=== PATIENT | male | born 1935 | race Caucasian/White ===

== ENCOUNTER → 2016-06-26 | Outpatient (CLI) | payer MEDICARE ==
[2015-11-01 10:44] VITALS: BP 123/63
[~2016-06-26] MED LIST: ACET325T9 PO; AMLO5TAB2 PO; ARGI1000 PO; ASPI-3 PO; CALC600T4 PO; CIPR500T94 PO; FAMO-63 PO; FLEC50TA PO; METF500T4 PO; METH4TAB2 PO; MOME17SP NS; OMEP20TA63 PO; PROVENTIL HFA6.7 GM IH; SAW500CA PO; SIMV20TA3 PO; vitamin D
[2016-06-26 13:55] LABS: CALCIUM 9.8 mg/dL (8.5-10.1); CREATININE 1.3 mg/dL (0.7-1.3); GFR 53.4; POTASSIUM 4.3 mmol/L (3.5-5.1)
== END | disposition home or self-care (01) ==
LOC: LAB 13:16
PROVIDERS: ATTEND Internal Medicine Cardiovascular Disease
DX: I10 Essential (primary) hypertension (principal); E78.5 Hyperlipidemia, unspecified
CPT/HCPCS: 80048

== ENCOUNTER → 2016-09-09 | Outpatient (CLI) | payer MEDICARE ==
[2015-11-01 10:44] VITALS: BP 123/63
[~2016-09-09] MED LIST changes: -ARGI1000 PO; +[UNRECOGNIZED DRUG - CODE] PO
--- NOTE | 2016-09-09 13:17 | KCIC ---
MRA Brain History: Family history of aneurysm Technique: 3-D [id number] MR angiography was performed of the brain. Axial diffusion and axial FLAIR sequences were also acquired. Comparison: There is no previous similar exam available. Correlation is made with MRI brain exam September 27, 2010 Contrast: None Findings: Determination of any degree of stenosis is based on NASCET criteria. Both vertebral arteries constitute basilar artery. There is visualization of segments of bilateral PICAs, AICAs, and superior cerebellar arteries. No significant posterior communicating arteries are visualized. There is likely very small anterior communicating artery. There is flow within bilateral anterior, middle, and posterior cerebral arteries. Flow is seen in the petrous, cavernous, and supraclinoid internal carotid arteries. No aneurysm or arteriovenous malformation is identified. There is no significant focal intracranial stenosis. Impression: 1. No intracranial aneurysm is identified. Electronically signed by: Scott Moore MD (09/09/2016 1:14 PM)
== END | disposition home or self-care (01) ==
LOC: KCIC MRI 12:04
PROVIDERS: ATTEND Internal Medicine Cardiovascular Disease
DX: Z82.3 Family history of stroke (principal)
CPT/HCPCS: 70544

== ENCOUNTER → 2017-04-16 | Outpatient (CLI) | payer MEDICARE ==
[2017-04-16 17:16] LABS: INFLUENZA A PATIENT NEGATIVE (NEGATIVE); INFLUENZA B PATIENT NEGATIVE (NEGATIVE); OBC FLU VALID
[2017-04-16 18:31] LABS: NEGATIVE OBC STREP NEG; POSITIVE OBC STREP POS
== END | disposition home or self-care (01) ==
LOC: LAB 15:16
DX: J02.9 Acute pharyngitis, unspecified (principal)
CPT/HCPCS: 87070; 87804; 87804-59; 87880

== ENCOUNTER → 2017-04-28 | Outpatient (CLI) | payer MEDICARE | END | disposition home or self-care (01) | LOC: KCIC DEXA 09:54 | DX: M85.88 Other specified disorders of bone density and structure, other site (principal) | CPT/HCPCS: 77080 ==

== ENCOUNTER → 2017-08-01 | Outpatient (CLI) | payer MEDICARE | END | disposition home or self-care (01) | LOC: KCIC MRI 09:49 | DX: H53.40 Unspecified visual field defects (principal); H53.9 Unspecified visual disturbance | CPT/HCPCS: 70544; 70551 ==

== ENCOUNTER 2017-08-11 13:01 | Emergency (ER) | payer MEDICARE ==
[2017-08-11 13:40] LABS: ADD MAN DIFF? NO
[2017-08-11] MEDS: IV NORMAL SALINE 500ML BAG 500 ML IV ×2 (13:42)
[2017-08-11] MEDS: ONDANSETRON PF 4 MG/2 ML VIAL. IV ×2 (13:42)
[2017-08-11 13:44] LABS: BASO # 0.1 x10^3/uL (0.0-0.2); BASO % 1 % (0-3); EOS # 0.1 x10^3/uL (0.0-0.7); EOS % 1 % (0-3); HEMATOCRIT 46.7 % (39.0-53.0); HEMOGLOBIN 16.1 g/dL (13.0-17.5); LYMPH # 1.1 x10^3/uL (1.0-4.8); LYMPH % 10 % (24-48); MEAN CORPUSCULAR HEMOGLOBIN 33 pg (25-35); MEAN CORPUSCULAR HGB CONC 34 g/dL (31-37); MEAN CORPUSCULAR VOLUME 95 fL (79-100); MONO # 0.6 x10^3/uL (0.0-1.1); MONO % 5 % (0-9); NEUT # 9.1 x10^3uL (1.8-7.7); NEUT % 83 % (31-73); PLATELET COUNT 179 x10^3/uL (140-400); RED BLOOD COUNT 4.91 x10^6/uL (4.30-5.70); RED CELL DISTRIBUTION WIDTH 13.5 % (11.5-14.5)
[2017-08-11 13:54] LABS: ANION GAP 3 (6-14); BLOOD UREA NITROGEN 17 mg/dL (8-26); BUN/CREATININE RATIO 13 (6-20); CALCIUM 9.5 mg/dL (8.5-10.1); CARBON DIOXIDE 35 mmol/L (21-32); CHLORIDE 103 mmol/L (98-107); CREATININE 1.3 mg/dL (0.7-1.3); GFR 53.3; GLUCOSE 133 mg/dL (70-99); POTASSIUM 3.8 mmol/L (3.5-5.1); SODIUM 141 mmol/L (136-145)
[2017-08-11 14:00] LABS: ALBUMIN 3.6 g/dL (3.4-5.0); ALBUMIN/GLOBULIN RATIO 1.1 (1.0-1.7); ALK PHOS 88 U/L (46-116); ALT (SGPT) 22 U/L (16-63); AST (SGOT) 19 U/L (15-37); LIPASE 122 U/L (73-393); TOTAL BILIRUBIN 0.7 mg/dL (0.2-1.0); TOTAL PROTEIN 6.9 g/dL (6.4-8.2)
[2017-08-11 14:03] LABS: TROPONINI < 0.017 ng/mL (0.000-0.055)
[2017-08-11 14:31] LABS: BILIRUBIN,URINE NEGATIVE (NEG); CLARITY,URINE CLEAR; COLOR,URINE YELLOW; GLUCOSE,URINE NEGATIVE (NEG); NITRITE,URINE NEGATIVE (NEG); PROTEIN,URINE NEGATIVE (NEG-TRACE); UROBILINOGEN,URINE 0.2 mg/dL (0.2 mg/dL)
[2017-08-11 15:02] LABS: BACTERIA,URINE FEW /HPF (0-FEW); RBC,URINE OCC /HPF (0-2); SQUAMOUS EPITHELIAL CELL,UR MOD /LPF
== END 2017-08-11 15:00 | disposition home or self-care (01) ==
LOC: ER 13:01
DX: R55 Syncope and collapse (principal); R42 Dizziness and giddiness; E78.00 Pure hypercholesterolemia, unspecified; I10 Essential (primary) hypertension; J44.9 Chronic obstructive pulmonary disease, unspecified; I48.91 Unspecified atrial fibrillation; Z88.1 Allergy status to other antibiotic agents; Z90.49 Acquired absence of other specified parts of digestive tract
CPT/HCPCS: 36415; 80053; 81001; 83690; 84484; 85025; 87086; 93005; 96361; 96374; 99285-25; J2405; J7040

== ENCOUNTER → 2017-09-11 | Outpatient (CLI) | payer MEDICARE ==
[2017-09-11] MEDS: GADOBUTROL 10 MMOL/10 ML VIAL IV (10:28)
== END | disposition home or self-care (01) ==
LOC: KCIC MRI 09:13
DX: H53.142 Visual discomfort, left eye (principal); I10 Essential (primary) hypertension; E11.9 Type 2 diabetes mellitus without complications; E78.5 Hyperlipidemia, unspecified; E78.00 Pure hypercholesterolemia, unspecified
CPT/HCPCS: 70549; A9585

== ENCOUNTER → 2017-10-01 | Outpatient (CLI) | payer MEDICARE | END | disposition home or self-care (01) | LOC: KCIC US 15:02 | DX: R93.8 Abnormal findings on diagnostic imaging of other specified body structures (principal); I10 Essential (primary) hypertension; E11.9 Type 2 diabetes mellitus without complications; J44.9 Chronic obstructive pulmonary disease, unspecified; E78.5 Hyperlipidemia, unspecified; E78.00 Pure hypercholesterolemia, unspecified; Z87.891 Personal history of nicotine dependence | CPT/HCPCS: 76536 ==

== ENCOUNTER → 2017-10-17 | Outpatient (CLI) | payer MEDICARE | END | disposition home or self-care (01) | LOC: US 09:58 | DX: E04.1 Nontoxic single thyroid nodule (principal); Z88.1 Allergy status to other antibiotic agents; Z98.49 Cataract extraction status, unspecified eye; E78.00 Pure hypercholesterolemia, unspecified; I48.91 Unspecified atrial fibrillation; I10 Essential (primary) hypertension; J44.9 Chronic obstructive pulmonary disease, unspecified; E11.9 Type 2 diabetes mellitus without complications; K21.9 Gastro-esophageal reflux disease without esophagitis; Z99.81 Dependence on supplemental oxygen; Z98.890 Other specified postprocedural states; Z90.49 Acquired absence of other specified parts of digestive tract; Z93.3 Colostomy status; E66.9 Obesity, unspecified; Z98.52 Vasectomy status; M17.0 Bilateral primary osteoarthritis of knee; Z79.82 Long term (current) use of aspirin; Z79.899 Other long term (current) drug therapy; Z87.891 Personal history of nicotine dependence; H53.142 Visual discomfort, left eye; Z79.84 Long term (current) use of oral hypoglycemic drugs | CPT/HCPCS: 10022; 60300; 76942; 88173; 88305 ==

== ENCOUNTER → 2019-12-08 | Outpatient (CLI) | payer MEDICARE ==
[2018-03-22 15:00] VITALS: BP 110/45
[~2019-12-08] MED LIST changes: +AMLO5TAB10 PO; -AMLO5TAB2 PO; +ASPI81TA50 PO; -CALC600T4 PO; +CALC600T6 PO; +MECL12.573 PO; +METF500T16 PO; -METF500T4 PO; +ONDA4TAB7 PO; +SIMV20TA18 PO; -SIMV20TA3 PO
--- NOTE | 2019-12-08 12:00 | KCIC ---
EXAMINATION: SHOULDER 2+V LEFT CLINICAL HISTORY: Shoulder pain x1 month TECHNIQUE: SHOULDER 2+V LEFT Number of images/views: 4 COMPARISON: None FINDINGS: Glenohumeral joint space narrowing and tiny anterior marginal osteophytes. Marked hypertrophic acromioclavicular degenerative changes. No acute fracture. Acromiohumeral interval maintained. IMPRESSION: Degenerative changes as described. Electronically signed by: Abhijit Bryson DO (12/08/2019 11:57 AM) [id number]
== END | disposition home or self-care (01) ==
LOC: KCIC 09:44
PROVIDERS: ATTEND Internal Medicine Cardiovascular Disease
DX: M19.012 Primary osteoarthritis, left shoulder (principal); M25.712 Osteophyte, left shoulder
CPT/HCPCS: 73030

== ENCOUNTER → 2019-12-30 | Outpatient (CLI) | payer MEDICARE ==
[2018-03-22 15:00] VITALS: BP 110/45
--- NOTE | 2019-12-30 09:36 | KCIC ---
Complete abdominal ultrasound Indication: Liver steatosis TECHNIQUE: Grayscale and color Doppler imaging of the abdomen was performed FINDINGS: Liver is normal size measuring 15.3 cm and shows mild increased echogenicity compatible with fatty infiltration. The gallbladder is surgically absent. The common duct is 3.5 mm in diameter. No intra or extrahepatic biliary dilation is evident. Visualized pancreas is normal. The spleen is enlarged at 12.9 cm. The abdominal aorta and IVC are poorly visualized due to bowel gas. The right kidney measures 9.0 x 4.0 x 5.2 cm and contains a 4.3 cm inferior pole cyst The left kidney measures 12.0 x 4.4 x 6.1 cm and is also unremarkable. IMPRESSION: Study limited by bowel gas artifact showing mild hepatic steatosis and splenomegaly, status post cholecystectomy. Electronically signed by: Shlomo Thomson MD (12/30/2019 9:33 AM) [id number]
== END ==
LOC: KCIC US 08:06
PROVIDERS: ATTEND Internal Medicine Cardiovascular Disease
DX: K76.0 Fatty (change of) liver, not elsewhere classified (principal); Z90.49 Acquired absence of other specified parts of digestive tract
CPT/HCPCS: 76700

== ENCOUNTER 2020-03-14 13:18 | Emergency (ER) | payer MEDICARE ==
[~2020-03-14] VITALS: Ht 180.3 cm; Wt 85.0 kg
[~2020-03-14 13:18] MED LIST changes: +AMLO-186 PO; -AMLO5TAB10 PO; -MECL12.573 PO; +MECL12.574 PO
[2020-03-14] MEDS ORDERED: MECLIZINE HCL 12.5 MG TABLET. PO ONE (13:30)
--- NOTE | 2020-03-14 13:33 | ED.ADGEN ---
Past Medical History Past Medical History: A-Fib, COPD, Diverticulitis, High Cholesterol, Hypertension, Other Additional Past Medical Histor: MD Valente Past Surgical History: Other Additional Past Surgical Histo: colon surgery with ostomy, hernia repair, vasectomy, cataract, muscle bx Smoking Status: Former Smoker Alcohol Use: None Drug Use: None General Adult HPI: HPI: Patient is a 84 year old male brought in by EMS for dizziness and vomiting that started 1 hour prior to arrival. Patient states he has had a similar episode 1 year ago that was released relieved with medications. Patient denies any recent illness or head injury. Denies any vision changes, headaches, tinnitus, changes in hearing, pain in his ears, fevers, neck stiffness, or diarrhea. Review of Systems: Review of Systems: Negative except HPI Current Medications: Current Medications Medications (Trade) Dose Ordered Sig/Roseline Start Time Stop Time Status Last Admin Dose Admin Meclizine HCl (Antivert) 25 mg 1X ONCE 03/14/20 13:30 03/14/20 13:31 DC 03/14/20 13:51 25 MG Allergies: Allergies: Allergies Coded Allergies Type Severity Reaction Last Updated Verified levofloxacin Allergy Severe Anaphylaxis 10/30/15 Yes morphine Allergy Severe 03/20/18 Yes Physical Exam: PE: Constitutional: Well developed, well nourished, mild acute distress, non-toxic appearance. [] HENT: Normocephalic, atraumatic, bilateral external ears normal, oropharynx moist, no oral exudates, nose normal. [] TMs unremarkable Eyes: Pupils 3 equal and reactive, extraocular is intact, fatigable nystagmus to the right Neck: Normal range of motion, no tenderness, supple, no stridor. [] Cardiovascular:Heart rate regular rhythm, no murmur [] Lungs & Thorax: Nonlabored respirations Abdomen: Nondistended Skin: Warm, dry, no erythema, no rash. [] Extremities: No tenderness, no cyanosis, no clubbing, ROM intact, no edema. [] Neurologic: Alert and oriented X 3, normal motor function, normal sensory function, no focal deficits noted. [] Psychologic: Affect normal, judgement normal, mood normal. [] Current Patient Data: Labs: Laboratory Tests Test 03/14/20 13:35 03/14/20 14:00 White Blood Count 10.1 x10^3/uL (4.0-11.0) Red Blood Count 5.03 x10^6/uL (4.30-5.70) Hemoglobin 16.0 g/dL (13.0-17.5) Hematocrit 47.7 % (39.0-53.0) Mean Corpuscular Volume 95 fL (79-100) Mean Corpuscular Hemoglobin 32 pg (25-35) Mean Corpuscular Hemoglobin Concent 34 g/dL (31-37) Red Cell Distribution Width 13.3 % (11.5-14.5) Platelet Count 176 x10^3/uL (140-400) Neutrophils (%) (Auto) 85 % (31-73) H Lymphocytes (%) (Auto) 9 % (24-48) L Monocytes (%) (Auto) 5 % (0-9) Eosinophils (%) (Auto) 1 % (0-3) Basophils (%) (Auto) 1 % (0-3) Neutrophils # (Auto) 8.5 x10^3/uL (1.8-7.7) H Lymphocytes # (Auto) 0.9 x10^3/uL (1.0-4.8) L Monocytes # (Auto) 0.5 x10^3/uL (0.0-1.1) Eosinophils # (Auto) 0.1 x10^3/uL (0.0-0.7) Basophils # (Auto) 0.1 x10^3/uL (0.0-0.2) Sodium Level 143 mmol/L (136-145) Potassium Level 3.7 mmol/L (3.5-5.1) Chloride Level 104 mmol/L (98-107) Carbon Dioxide Level 31 mmol/L (21-32) Anion Gap 8 (6-14) Blood Urea Nitrogen 13 mg/dL (8-26) Creatinine 1.2 mg/dL (0.7-1.3) Estimated GFR (Cockcroft-Gault) 58.0 BUN/Creatinine Ratio 11 (6-20) Glucose Level 137 mg/dL (70-99) H Calcium Level 9.5 mg/dL (8.5-10.1) Magnesium Level 1.9 mg/dL (1.8-2.4) Total Bilirubin 0.6 mg/dL (0.2-1.0) Aspartate Amino Transferase (AST) 18 U/L (15-37) Alanine Aminotransferase (ALT) 16 U/L (16-63) Alkaline Phosphatase 96 U/L (46-116) Troponin I Quantitative < 0.017 ng/mL (0.000-0.055) Total Protein 6.3 g/dL (6.4-8.2) L Albumin 3.6 g/dL (3.4-5.0) Albumin/Globulin Ratio 1.3 (1.0-1.7) Urine Collection Type Unknown Urine Color Yellow Urine Clarity Clear Urine pH 7.0 (<5.0-8.0) Urine Specific Hope 1.010 (1.000-1.030) Urine Protein Negative mg/dL (NEG-TRACE) Urine Glucose (UA) Negative mg/dL (NEG) Urine Ketones (Stick) Negative mg/dL (NEG) Urine Blood Negative (NEG) Urine Nitrite Negative (NEG) Urine Bilirubin Negative (NEG) Urine Urobilinogen Dipstick 1.0 mg/dL (0.2 mg/dL) Urine Leukocyte Esterase Small (NEG) Urine RBC 0 /HPF (0-2) Urine WBC 1-4 /HPF (0-4) Urine Squamous Epithelial Cells Few /LPF Urine Bacteria 0 /HPF (0-FEW) Laboratory Tests 03/14/20 13:35 Laboratory Tests 03/14/20 13:35 Vital Signs: Vital Signs Date Time Temp Pulse Resp B/P (MAP) Pulse Ox O2 Delivery O2 Flow Rate FiO2 03/14/20 14:59 69 100 03/14/20 13:18 97.6 22 175/89 (117) Room Air 97.6 EKG: EKG: Sinus rhythm, but anterior fascicular block, incomplete right bundle, indeterminate axis, no ST elevation or depression, no ectopy [] Heart Score: Risk Factors: Risk Factors: DM, Current or recent (<one month) smoker, HTN, HLP, family history of CAD, obesity. Risk Scores: Score 0 - 3: 2.5% MACE over next 6 weeks - Discharge Home Score 4 - 6: 20.3% MACE over next 6 weeks - Admit for Clinical Observation Score 7 - 10: 72.7% MACE over next 6 weeks - Early Invasive Strategies Radiology/Procedures: Radiology/Procedures: [] Course & Med Decision Making: Course & Med Decision Making Pertinent Labs and Imaging studies reviewed. (See chart for details) Symptoms completely resolved. History, physical exam, lab work suggests peripheral vertigo [] Dragon Disclaimer: Dragon Disclaimer: This electronic medical record was generated, in whole or in part, using a voice recognition dictation system. Departure Departure Impression: Primary Impression: BPPV (benign paroxysmal positional vertigo) Disposition: 01 DC HOME SELF CARE/HOMELESS Condition: IMPROVED Referrals: JOSIE SQUIRES MD (PCP) Patient Instructions: Benign Positional Vertigo Scripts Meclizine Hcl (MECLIZINE HCL) 25 Mg Tablet 1 TAB PO TID for dizziness for 10 Days, #30 TAB Prov: ORIN TIRADO MD 03/14/20 Ondansetron (ONDANSETRON ODT) 4 Mg Tab.rapdis 1 TAB PO PRN Q6-8HRS for nausea for 5 Days, #16 TAB Prov: ORIN TIRADO MD 03/14/20 ORIN TIRADO MD Mar 14, 2020 13:33
[2020-03-14 14:04] LABS: BASO # 0.1 x10^3/uL (0.0-0.2); BASO % 1 % (0-3); EOS # 0.1 x10^3/uL (0.0-0.7); EOS % 1 % (0-3); HEMATOCRIT 47.7 % (39.0-53.0); LYMPH # 0.9 x10^3/uL (1.0-4.8); LYMPH % 9 % (24-48); MEAN CORPUSCULAR HEMOGLOBIN 32 pg (25-35); MEAN CORPUSCULAR HGB CONC 34 g/dL (31-37); MEAN CORPUSCULAR VOLUME 95 fL (79-100); MONO # 0.5 x10^3/uL (0.0-1.1); MONO % 5 % (0-9); NEUT # 8.5 x10^3/uL (1.8-7.7); NEUT % 85 % (31-73); PLATELET COUNT 176 x10^3/uL (140-400); RED BLOOD COUNT 5.03 x10^6/uL (4.30-5.70); RED CELL DISTRIBUTION WIDTH 13.3 % (11.5-14.5); WHITE BLOOD COUNT 10.1 x10^3/uL (4.0-11.0)
--- NOTE | 2020-03-14 14:06 | EKG ---
[facility] [address] [place] [address] Test Date: 2020-03-14 Test Time: 13:55:54 Pat Name: QUIN DAVIS Department: Room: Gender: M Nodulizer: : 1935 Requested By: ORIN TIRADO Order Number: [id number] Reading MD: Measurements Intervals [place] Rate: 66 P: -88 WI: 206 QRS: 258 QRSD: 108 T: 41 QT: 426 QTc: 448 Interpretive Statements SINUS RHYTHM ABNORMAL RIGHT SUPERIOR AXIS DEVIATION S1,S2,S3 PATTERN LEFT ANTERIOR FASCICULAR BLOCK INCOMPLETE RIGHT BUNDLE BRANCH BLOCK CONSIDER RIGHT VENTRICULAR HYPERTROPHY ABNORMAL ECG RI6.02 No previous ECG available for comparison
[2020-03-14 14:13] LABS: BILIRUBIN,URINE NEGATIVE (NEG); CLARITY,URINE CLEAR; COLOR,URINE YELLOW; NITRITE,URINE NEGATIVE (NEG); PROTEIN,URINE NEGATIVE (NEG-TRACE)
[2020-03-14 14:29] LABS: CALCIUM 9.5 mg/dL (8.5-10.1); CREATININE 1.2 mg/dL (0.7-1.3); POTASSIUM 3.7 mmol/L (3.5-5.1)
[2020-03-14 14:35] LABS: ALBUMIN 3.6 g/dL (3.4-5.0); ALBUMIN/GLOBULIN RATIO 1.3 (1.0-1.7); MAGNESIUM 1.9 mg/dL (1.8-2.4); TOTAL BILIRUBIN 0.6 mg/dL (0.2-1.0); TOTAL PROTEIN 6.3 g/dL (6.4-8.2)
[2020-03-14 14:40] LABS: BACTERIA,URINE 0 /HPF (0-FEW); RBC,URINE 0 /HPF (0-2)
[2020-03-14] MEDS ORDERED: MECL-75 PO (15:24)
[2020-03-14] MEDS ORDERED: ONDA4TAB12 PO (15:24)
[2020-03-14 15:29] VITALS: BP 135/71
== END 2020-03-14 15:40 | disposition home or self-care (01) ==
LOC: ER 13:18
DX: H81.10 Benign paroxysmal vertigo, unspecified ear (principal); R11.10 Vomiting, unspecified; J44.9 Chronic obstructive pulmonary disease, unspecified; I48.91 Unspecified atrial fibrillation; E78.00 Pure hypercholesterolemia, unspecified; I10 Essential (primary) hypertension; Z87.891 Personal history of nicotine dependence
CPT/HCPCS: 36415; 80053; 81001; 83735; 84484; 85025; 87086; 93005; 99285; J8597

== ENCOUNTER 2021-01-23 12:36 | Inpatient (IN) | payer MEDICARE ==
[~2021-01-23] VITALS: Ht 182.9 cm; Wt 88.1 kg
[~2021-01-23 12:36] MED LIST changes: -CALC600T6 PO; +CALC600T60 PO; +MECL-75 PO; -MECL12.574 PO; +MECL12.582 PO; +ONDA4TAB12 PO
--- NOTE | 2021-01-23 13:04 | PHYS DOC ---
Past Medical History Past Medical History: A-Fib, COPD, Diverticulitis, High Cholesterol, Hype rtension, Other Additional Past Medical Histor: MD Valente, O2 dependant, vertigo Past Surgical History: Other Additional Past Surgical Histo: colon surgery with ostomy, hernia repair, vasectomy, cataract, muscle bx Smoking Status: Never Smoker Alcohol Use: None Drug Use: None General Adult EDM: Chief Complaint: DIZZY/LIGHT HEADED HPI: HPI: Patient is an 85-year-old male that presents today per [facility] with complaint of dizziness. Patient states today around 10 AM he was driving to [place] with his and had a sudden onset of dizziness. Patient cannot verbalize if the dizziness gets better or worse with his eyes open or closed with movement. Patient states he then drove home with his after putting on his oxygen that he chronically is on, sat down in a chair took his meclizine prince t he has ordered at home for his dizziness, and as of right now states he feels better. EMS reported that stated patient did have some diaphoresis with this dizziness, no change in the mental status was reported. Review of Systems: Review of Systems: Constitutional: Denies fever or chills. [] Eyes: Denies change in visual acuity. [] HENT: Denies nasal congestion or sore throat. [] Respiratory: Denies cough or shortness of breath. [] Cardiovascular: Denies chest pain or edema. [] GI: Denies abdominal pain, nausea, vomiting, bloody stools or diarrhea. [] : Denies dysuria. [] Musculoskeletal: Denies back pain or joint pain. [] Integument: Denies rash. [] Neurologic: Denies headache, does state he has neck pain at this time but feels it is due to the pillow. Endocrine: Denies polyuria or polydipsia. [] Lymphatic: Denies swollen glands. [] Psychiatric: Denies depression or anxiety. [] Heart Score: C/O Chest Pain: N/A Risk Factors: Risk Factors: DM, Current or recent (<one month) smoker, HTN, HLP, family history of CAD, obesity. Risk Scores: Score 0 - 3: 2.5% MACE over next 6 weeks - Discharge Home Score 4 - 6: 20.3% MACE over next 6 weeks - Admit for Clinical Observation Score 7 - 10: 72.7% MACE over next 6 weeks - Early Invasive Strategies Current Medications: Aspirin Flecainide Meclizine Cholesterol medication Allergies: Allergies: Allergies Coded Allergies Type Severity Reaction Last Updated Verified levofloxacin Allergy Severe Anaphylaxis 10/30/15 Yes morphine Allergy Severe 03/20/18 Yes Physical Exam: PE: Constitutional: Well developed, well nourished, no acute distress, non-toxic ap pearance. [] HENT: Normocephalic, atraumatic, bilateral external ears normal, oropharynx moist, no oral exudates, nose normal. [] Eyes: PERRLA, EOMI, conjunctiva normal, no discharge. [] Neck: Pain with range of motion, no tenderness with palpation. Cardiovascular: Sinus rhythm with multiple PVCs on the monitor, heart tones normal, peripheral pulses 1+, no edema Lungs & Thorax: O2 at 2 L via nasal cannula, right lower lobe rhonchi noted, cough noted. Abdomen: Bowel sounds normal, soft, no tenderness, no masses, no pulsatile masses. [] Skin: Warm, dry, no erythema, no rash. [] Back: No tenderness, no CVA tenderness. [] Extremities: No tenderness, no cyanosis, no clubbing, ROM intact, no edema. [] Neurologic: Alert and oriented X 3, no sensory or musculoskeletal issues noted, no ataxia, diversity manager strength equal. Psychologic: Affect normal, judgement normal, mood normal. [] Current Patient Data: Labs: Laboratory Tests Test 01/23/21 13:00 White Blood Count 9.0 x10^3/uL Red Blood Count 4.90 x10^6/uL Hemoglobin 15.7 g/dL Hematocrit 47.1 % Mean Corpuscular Volume 96 fL Mean Corpuscular Hemoglobin 32 pg Mean Corpuscular Hemoglobin Concent 33 g/dL Red Cell Distribution Width 13.5 % Platelet Count 173 x10^3/uL Neutrophils (%) (Auto) 81 % Lymphocytes (%) (Auto) 11 % Monocytes (%) (Auto) 6 % Eosinophils (%) (Auto) 1 % Basophils (%) (Auto) 1 % Neutrophils # (Auto) 7.3 x10^3/uL Lymphocytes # (Auto) 1.0 x10^3/uL Monocytes # (Auto) 0.6 x10^3/uL Eosinophils # (Auto) 0.1 x10^3/uL Basophils # (Auto) 0.1 x10^3/uL Sodium Level 140 mmol/L Potassium Level 4.8 mmol/L Chloride Level 101 mmol/L Carbon Dioxide Level 36 mmol/L Anion Gap 3 Blood Urea Nitrogen 14 mg/dL Creatinine 1.2 mg/dL Estimated GFR (Cockcroft-Gault) 57.8 BUN/Creatinine Ratio 12 Glucose Level 122 mg/dL Calcium Level 9.3 mg/dL Magnesium Level 1.9 mg/dL Total Bilirubin 0.6 mg/dL Aspartate Amino Transf (AST/SGOT) 25 U/L Alanine Aminotransferase (ALT/SGPT) 21 U/L Alkaline Phosphatase 98 U/L Troponin I High Sensitivity 8 ng/L Total Protein 6.9 g/dL Albumin 3.4 g/dL Albumin/Globulin Ratio 1.0 Vital Signs: Vital Signs Date Time Temp Pulse Resp B/P (MAP) Pulse Ox O2 Delivery O2 Flow Rate FiO2 01/23/21 14:38 69 15 175/82 (113) 97 Room Air 01/23/21 12:46 97.5 65 22 144/87 (106) 97 Nasal Cannula 2.0 97.5 Vital Signs Date Time Temp Pulse Resp B/P (MAP) Pulse Ox O2 Delivery O2 Flow Rate FiO2 01/23/21 12:46 97.5 65 22 144/87 (106) 97 Nasal Cannula 2.0 97.5 EKG: EKG: EKG done at [address] Causey at 1248, sinus rhythm with PVCs noted left bundle branch right bundle branch block noted rate of 54 [] Radiology/Procedures: Radiology/Procedures: REASON: dizziness PROCEDURE: CT HEAD WO CONTRAST EXAM: CT head without contrast INDICATION: Dizziness COMPARISON: CT head 03/20/2018 TECHNIQUE: Axial CT imaging through the head without intravenous contrast. Coronal reformats were obtained. One or more of the following individualized dose reduction techniques were utilized for this examination: 1. Automated exposure control 2. Adjustment of the mA and/or kV according to patient size 3. Use of iterative reconstruction technique. FINDINGS: The ventricles and sulci are mildly enlarged. Rueda-white matter differentiation is maintained. There is no intracranial hemorrhage, acute infarct, or mass lesion. Basal cisterns are clear. The skull and scalp are intact. There is mild mucosal thickening in the ethmoid air cells. The remaining paranasal sinuses and mastoid air cells are clear. Globes and orbits are intact. IMPRESSION: No acute intracranial abnormality. Electronically signed by: Katya Ramirez MD (01/23/2021 1:38 PM) [id number] Laboratory Tests Test 01/23/21 13:00 White Blood Count 9.0 x10^3/uL Red Blood Count 4.90 x10^6/uL Hemoglobin 15.7 g/dL Hematocrit 47.1 % Mean Corpuscular Volume 96 fL Mean Corpuscular Hemoglobin 32 pg Mean Corpuscular Hemoglobin Concent 33 g/dL Red Cell Distribution Width 13.5 % Platelet Count 173 x10^3/uL Neutrophils (%) (Auto) 81 % Lymphocytes (%) (Auto) 11 % Monocytes (%) (Auto) 6 % Eosinophils (%) (Auto) 1 % Basophils (%) (Auto) 1 % Neutrophils # (Auto) 7.3 x10^3/uL Lymphocytes # (Auto) 1.0 x10^3/uL Monocytes # (Auto) 0.6 x10^3/uL Eosinophils # (Auto) 0.1 x10^3/uL Basophils # (Auto) 0.1 x10^3/uL Sodium Level 140 mmol/L Potassium Level 4.8 mmol/L Chloride Level 101 mmol/L Carbon Dioxide Level 36 mmol/L Anion Gap 3 Blood Urea Nitrogen 14 mg/dL Creatinine 1.2 mg/dL Estimated GFR (Cockcroft-Gault) 57.8 BUN/Creatinine Ratio 12 Glucose Level 122 mg/dL Calcium Level 9.3 mg/dL Magnesium Level 1.9 mg/dL Total Bilirubin 0.6 mg/dL Aspartate Amino Transf (AST/SGOT) 25 U/L Alanine Aminotransferase (ALT/SGPT) 21 U/L Alkaline Phosphatase 98 U/L Troponin I High Sensitivity 8 ng/L Total Protein 6.9 g/dL Albumin 3.4 g/dL Albumin/Globulin Ratio 1.0 [] Course & Med Decision Making: Course & Med Decision Making 1430 patient states has no dizziness at this time, EKG continues to show sinus rhythm with multiple PVCs couplets and triplets. Blood pressure currently is 175/82. Spoke to on the phone with patient present states they were driving this morning around 10 AM and patient became diaphoretic and clipped open the windows in the car she states he was very dizzy at that time and they drove home. states he took his meclizine for his dizziness and states he feels better but he told her to call 911 so he could come to the hospital. states that he had another episode of this in October 2020 as well and was not evaluated at this time. Spoke with patient and at length on the phone and feel an admission is appropriate for the symptoms. and patient are both agreeable to the plan of care. Will page hospitalist group for admission [address] Montoya patient will be admitted underneath his service. Laylaon Disclaimer: Agus Disclaimer: This electronic medical record was generated, in whole or in part, using a voice recognition dictation system. Departure Departure Impression: Primary Impression: Dizziness Disposition: 09 ADMITTED INPATIENT Admitting Physician: NAHOMI Condition: STABLE Referrals: JOSIE SQUIRES MD (PCP) DOLORES KUMAR APRN Jan 23, 2021 13:04
[2021-01-23 13:16] LABS: BASO # 0.1 x10^3/uL (0.0-0.2); BASO % 1 % (0-3); EOS # 0.1 x10^3/uL (0.0-0.7); EOS % 1 % (0-3); HEMATOCRIT 47.1 % (39.0-53.0); HEMOGLOBIN 15.7 g/dL (13.0-17.5); LYMPH % 11 % (24-48); MEAN CORPUSCULAR HEMOGLOBIN 32 pg (25-35); MEAN CORPUSCULAR HGB CONC 33 g/dL (31-37); MEAN CORPUSCULAR VOLUME 96 fL (79-100); MONO # 0.6 x10^3/uL (0.0-1.1); MONO % 6 % (0-9); NEUT # 7.3 x10^3/uL (1.8-7.7); NEUT % 81 % (31-73); PLATELET COUNT 173 x10^3/uL (140-400); RED CELL DISTRIBUTION WIDTH 13.5 % (11.5-14.5)
[2021-01-23 13:31] LABS: CALCIUM 9.3 mg/dL (8.5-10.1); CREATININE 1.2 mg/dL (0.7-1.3); GFR 57.8; POTASSIUM 4.8 mmol/L (3.5-5.1)
[2021-01-23 13:35] LABS: ALBUMIN 3.4 g/dL (3.4-5.0); MAGNESIUM 1.9 mg/dL (1.8-2.4); TOTAL BILIRUBIN 0.6 mg/dL (0.2-1.0); TOTAL PROTEIN 6.9 g/dL (6.4-8.2)
--- NOTE | 2021-01-23 13:41 | RAD ---
EXAM: CT head without contrast INDICATION: Dizziness COMPARISON: CT head 03/20/2018 TECHNIQUE: Axial CT imaging through the head without intravenous contrast. Coronal reformats were obt ained. One or more of the following individualized dose reduction techniques were utilized for this examinat ion: 1. Automated exposure control 2. Adjustment of the mA and/or kV according to patient size 3. Use of iterative reconstruction technique. FINDINGS: The ventricles and sulci are mildly enlarged. Rueda-white matter differentiation is maintained. There is no intracranial hemorrhage, acute infarct, or mass lesion. Basal cisterns are clear. The skull and scalp are intact. There is mild mucosal thickening in the ethmoid air cells. The remain ing paranasal sinuses and mastoid air cells are clear. Globes and orbits are intact. IMPRESSION: No acute intracranial abnormality. Electronically signed by: Katya Ramirez MD (01/23/2021 1:38 PM) [id number]
--- NOTE | 2021-01-23 14:29 | RAD ---
EXAM: XR CHEST 1V 01/23/2021 1:48 PM CLINICAL INDICATION: Cough and dizziness COMPARISON: chest radiograph 03/20/2018 TECHNIQUE: AP upright view of the chest FINDINGS: There is unchanged elevation of the right hemidiaphragm. The cardiac silhouette is stable. There are chronic appearing interstitial opacities in the lung bases, greater on the left, unchanged . There is possible 7 mm nodule in the medial left apex versus superimposed costosternal degenerative changes. No pneumothorax. No acute osseous abnormality. IMPRESSION: 1. Unchanged moderate elevation of the right hemidiaphragm. 2. Unchanged chronic appearing interstitial opacities in the lung bases. 3. Possible 7 mm nodule in the medial left apex versus superimposed costosternal degenerative changes . CT could be obtained to further evaluate. Electronically signed by: Katya Ramirez MD (01/23/2021 2:26 PM) [id number]
[2021-01-23] MEDS ORDERED: ELECTROLYTE (NON-ICU) PROTOCOL. MC PRN (15:00)
[2021-01-23] MEDS ORDERED: ZOLPIDEM 5 MG TABLET. PO PRN (15:00)
[2021-01-23] MEDS ORDERED: ONDANSETRON PF 4 MG/2 ML VIAL. IVP PRN (15:00)
[2021-01-23] MEDS ORDERED: hydrALAZINE 20 MG/ML VIAL. IVP ONE (15:00)
[2021-01-23] MEDS ORDERED: ACETAMINOPHEN 325 MG TABLET. PO PRN (15:00)
[2021-01-23] MEDS ORDERED: CALCIUM CARBONATE 500 MG TAB.CHEW PO PRN (15:00)
[2021-01-23] MEDS ORDERED: MECLIZINE HCL 12.5 MG TABLET. PO PRN (15:00)
--- NOTE | 2021-01-23 15:19 | PDOC1 ---
History and Physical Date of Service: DOS: DATE: 01/23/21 TIME: 15:12 Chief Complaint: Problems: (1) BPPV (benign paroxysmal positional vertigo) (2) Dizziness Chief Complain: Dizziness History of Present Illness: HPI: Patient is an 85-year-old white male who presented to the emergency room today due to acute onset of dizziness this morning. He reports that at 10 AM today he was driving to [employer] with his and had a sudden onset of dizziness. Patient cannot verbalize if the dizziness gets better or worse with his eyes open or closed with movement. He then drove home with his after putting on his oxygen that he chronically is on, sat down in a chair took his meclizine that he has ordered at home for his dizziness, and had improvement in symptoms. He however still requested his to call EMS to bring him to the hospital. EMS reported that stated patient did have some diaphoresis with this dizziness, no change in the mental status was reported. I evaluated the patient in the emergency room he says he felt at his baseline. Says no more dizziness. Does have a high burden of PVCs on telemetry from what I can tell thus would like to monitor on telemetry overnight. Patient does have a history of muscular dystrophy he is bed and wheelchair bound. Given history of A. fib patient reports he is currently on flecainide unknown dosage. Is not on anticoagulation and he says due to history of a renal bleed. Past Medical/Surgical History: PMH/PSH: A-Fib, COPD, Diverticulitis, High Cholesterol, Hypertension,, vertigo, O2 dependent Allergies: Allergies: Coded Allergies: levofloxacin (Verified Allergy, Severe, Anaphylaxis, 10/30/15) morphine (Verified Allergy, Severe, 03/20/18) hallucinations Family History: Family History: Reviewed with patient and he reports hypertension and CAD throughout his family Social History: Social History: Denies alcohol tobacco or drug use Current Medications: Current Medications Active Scripts Active Meclizine Hcl 25 Mg Tablet 1 Tab PO TID 10 Days Ondansetron Odt (Ondansetron) 4 Mg Tab.rapdis 1 Tab PO PRN Q6-8HRS 5 Days Zofran (Ondansetron Hcl) 4 Mg Tablet 1 Tab PO Q6HRS Meclizine Hcl 12.5 Mg Tablet 25 Mg PO PRN Q6HRS PRN MDD 1 Reported Aspir-Low (Aspirin) 81 Mg Tablet.dr 1 Tab PO DAILY Simvastatin 20 Mg Tablet 20 Mg PO ROS: Review of Systems Review of System Unless noted in HPI 14 point review of systems was negative Physical Exam: Vital Signs: Vital Signs Date Time Temp Pulse Resp B/P (MAP) Pulse Ox O2 Delivery O2 Flow Rate FiO2 01/23/21 14:38 69 15 175/82 (113) 97 Room Air 01/23/21 12:46 97.5 2.0 97.5 Physcial Exam: GEN: No apparent distress. Alert and oriented HEENT: Normal cephalic, atraumatic, external auditory canals are patent EYES: Extraocular muscles are intact, pupil are equally round and reactive to light and accommodation MUSCULOSKELETAL: Well developed , well nourished, good range of motion ENDOCRINE: No thyromegaly was palpated LYMPHATICS: No cervical chain or axillary nodes were noted HEMATOPOIETIC: No bruising NECK: Supple, no JVD, no thyromegaly was noted LUNGS: Clear to auscultation in all lung mcqueen without rhonchi or wheezing HEART: RRR, S1, S2 present. Patient not in A. fib on my exam peripheral pulses intact ABDOMEN: Soft, nontender. Positive bowel sounds, no organomegaly, normal bowel sounds EXTREMITIES: Without clubbing, cyanosis, or edema. Pedal pulses intact. NEUROLOGIC: Normal speech and tone. A&O x 3, moves all extremities, no obvious focal deficits PSYCHIATRIC: Normal affect, normal mood. Stable SKIN: No ulcerations or rashes, good skin turgor, no jaundice VASCULAR: Good capillary refill, neurovascular bundle appears to be intact Labs: Labs: Laboratory Tests Test 01/23/21 13:00 White Blood Count 9.0 x10^3/uL (4.0-11.0) Red Blood Count 4.90 x10^6/uL (4.30-5.70) Hemoglobin 15.7 g/dL (13.0-17.5) Hematocrit 47.1 % (39.0-53.0) Mean Corpuscular Volume 96 fL (79-100) Mean Corpuscular Hemoglobin 32 pg (25-35) Mean Corpuscular Hemoglobin Concent 33 g/dL (31-37) Red Cell Distribution Width 13.5 % (11.5-14.5) Platelet Count 173 x10^3/uL (140-400) Neutrophils (%) (Auto) 81 % (31-73) Lymphocytes (%) (Auto) 11 % (24-48) Monocytes (%) (Auto) 6 % (0-9) Eosinophils (%) (Auto) 1 % (0-3) Basophils (%) (Auto) 1 % (0-3) Neutrophils # (Auto) 7.3 x10^3/uL (1.8-7.7) Lymphocytes # (Auto) 1.0 x10^3/uL (1.0-4.8) Monocytes # (Auto) 0.6 x10^3/uL (0.0-1.1) Eosinophils # (Auto) 0.1 x10^3/uL (0.0-0.7) Basophils # (Auto) 0.1 x10^3/uL (0.0-0.2) Sodium Level 140 mmol/L (136-145) Potassium Level 4.8 mmol/L (3.5-5.1) Chloride Level 101 mmol/L (98-107) Carbon Dioxide Level 36 mmol/L (21-32) Anion Gap 3 (6-14) Blood Urea Nitrogen 14 mg/dL (8-26) Creatinine 1.2 mg/dL (0.7-1.3) Estimated GFR (Cockcroft-Gault) 57.8 BUN/Creatinine Ratio 12 (6-20) Glucose Level 122 mg/dL (70-99) Calcium Level 9.3 mg/dL (8.5-10.1) Magnesium Level 1.9 mg/dL (1.8-2.4) Total Bilirubin 0.6 mg/dL (0.2-1.0) Aspartate Amino Transf (AST/SGOT) 25 U/L (15-37) Alanine Aminotransferase (ALT/SGPT) 21 U/L (16-63) Alkaline Phosphatase 98 U/L (46-116) Troponin I High Sensitivity 8 ng/L (4-75) Total Protein 6.9 g/dL (6.4-8.2) Albumin 3.4 g/dL (3.4-5.0) Albumin/Globulin Ratio 1.0 (1.0-1.7) Laboratory Tests Test 01/23/21 13:00 White Blood Count 9.0 x10^3/uL (4.0-11.0) Red Blood Count 4.90 x10^6/uL (4.30-5.70) Hemoglobin 15.7 g/dL (13.0-17.5) Hematocrit 47.1 % (39.0-53.0) Mean Corpuscular Volume 96 fL (79-100) Mean Corpuscular Hemoglobin 32 pg (25-35) Mean Corpuscular Hemoglobin Concent 33 g/dL (31-37) Red Cell Distribution Width 13.5 % (11.5-14.5) Platelet Count 173 x10^3/uL (140-400) Neutrophils (%) (Auto) 81 % (31-73) Lymphocytes (%) (Auto) 11 % (24-48) Monocytes (%) (Auto) 6 % (0-9) Eosinophils (%) (Auto) 1 % (0-3) Basophils (%) (Auto) 1 % (0-3) Neutrophils # (Auto) 7.3 x10^3/uL (1.8-7.7) Lymphocytes # (Auto) 1.0 x10^3/uL (1.0-4.8) Monocytes # (Auto) 0.6 x10^3/uL (0.0-1.1) Eosinophils # (Auto) 0.1 x10^3/uL (0.0-0.7) Basophils # (Auto) 0.1 x10^3/uL (0.0-0.2) Sodium Level 140 mmol/L (136-145) Potassium Level 4.8 mmol/L (3.5-5.1) Chloride Level 101 mmol/L (98-107) Carbon Dioxide Level 36 mmol/L (21-32) Anion Gap 3 (6-14) Blood Urea Nitrogen 14 mg/dL (8-26) Creatinine 1.2 mg/dL (0.7-1.3) Estimated GFR (Cockcroft-Gault) 57.8 BUN/Creatinine Ratio 12 (6-20) Glucose Level 122 mg/dL (70-99) Calcium Level 9.3 mg/dL (8.5-10.1) Magnesium Level 1.9 mg/dL (1.8-2.4) Total Bilirubin 0.6 mg/dL (0.2-1.0) Aspartate Amino Transf (AST/SGOT) 25 U/L (15-37) Alanine Aminotransferase (ALT/SGPT) 21 U/L (16-63) Alkaline Phosphatase 98 U/L (46-116) Troponin I High Sensitivity 8 ng/L (4-75) Total Protein 6.9 g/dL (6.4-8.2) Albumin 3.4 g/dL (3.4-5.0) Albumin/Globulin Ratio 1.0 (1.0-1.7) Assessment/Plan Assessment/Plan Acute onset dizziness secondary to BPPV versus atrial fibrillation versus dehydration? History of A. fib COPD on home O2 hypertension hyperlipidemia -Patient with 1 day history acute onset dizziness. Has had episodes like this in the past and seems most related to vertigo as dizziness usually improves with meclizine -Patient took meclizine when this episode started and symptoms have improved since according to him -On monitor patient with high burden of PVCs. Given the dizzy episode and history of A. fib on home flecainide will consult cardiology. -Patient says he does follow with a acid tester but has not seen him in several years. He could not exactly remember which ones but just that they were in [facility] -As needed meclizine -Home meds resumed as indicated -Patient previously on home inhalers for COPD but says he was taken off them for reasons unknown -We will try him on a basic Pulmicort and see how he does -DVT prophylaxis -Regular diet -Hold off on PT OT as patient is largely bed and wheelchair-bound but does still drive I spent 16 minutes discussing advance care planning with this patient. Justifications for Admission Other Justification NOEL LEDEZMA MD Jan 23, 2021 15:19
[2021-01-23] MEDS ORDERED: FLEC100T PO (16:57)
[2021-01-23] MEDS ORDERED: [UNRECOGNIZED DRUG - CODE] PO (16:57)
[2021-01-23] MEDS ORDERED: SAW450CA7 PO (16:57)
[2021-01-23] MEDS ORDERED: UBID200C7 PO (16:57)
[2021-01-23] MEDS ORDERED: ATOR10TA60 PO (16:57)
[2021-01-23] MEDS ORDERED: OMEP-346 PO (16:57)
[2021-01-23 19:00] VITALS: BP 118/71
[2021-01-23] MEDS: SENNOSIDES/DOCUSATE 8.6/50MG TABLET. PO SCH (20:19)
[2021-01-23] MEDS: FLECAINIDE ACETATE 50 MG TABLET. PO SCH (20:26)
[2021-01-23] MEDS: ATORVASTATIN CALCIUM 10 MG TABLET. PO SCH (20:26)
[2021-01-23] MEDS: ASPIRIN ENTERIC COATED 81 MG TABLET.DR. PO SCH (20:26)
[2021-01-23] MEDS ORDERED: FLUT9.9S NS (20:28)
[2021-01-23] MEDS: HEPARIN for SUB-Q USE 5,000 UNIT/ML VIAL. SQ SCH (20:29)
[2021-01-23] MEDS ORDERED: SIMVASTATIN 20 MG TABLET PO SCH (21:00)
[2021-01-23] MEDS: FLUTICASONE 50MCG/NASAL SPRAY 16GM BOTTLE. NS SCH (21:30)
[2021-01-23 23:00] VITALS: BP 112/61
[2021-01-24] VITALS (10 sets, daily range): BP systolic 94–138; BP diastolic 32–72
[2021-01-24] MEDS: HEPARIN for SUB-Q USE 5,000 UNIT/ML VIAL. SQ SCH ×3 (05:23→21:41)
[2021-01-24] MEDS: SENNOSIDES/DOCUSATE 8.6/50MG TABLET. PO SCH ×2 (07:48→21:26)
[2021-01-24] MEDS: FLUTICASONE 50MCG/NASAL SPRAY 16GM BOTTLE. NS SCH ×2 (07:48→21:26)
[2021-01-24] MEDS: PANTOPRAZOLE 40 MG TABLET.DR. PO SCH (07:49)
[2021-01-24] MEDS: FLECAINIDE ACETATE 50 MG TABLET. PO SCH ×2 (07:49→21:27)
--- NOTE | 2021-01-24 08:30 | PDOC ---
[employer] PROGRESS NOTE Date of Service DOS: DATE: 01/24/21 TIME: 08:29 Chief Complaint Chief Complaint Vertigo Weakness Dizziness Noncompliance History of muscular dystrophy A-Fib, COPD, Diverticulitis, High Cholesterol, Hypertension,, vertigo, O2 dependent History of Present Illness History of Present Illness 01/24/2021 Patient seen and examined Discussed with RN Chart reviewed Vitals/I&O Vitals/I&O: Vital Signs Date Time Temp Pulse Resp B/P (MAP) Pulse Ox O2 Delivery O2 Flow Rate FiO2 01/24/21 07:55 49 118/69 (85) 94 Nasal Cannula 4.0 01/24/21 07:05 97.9 20 97.9 I & O 01/23/21 01/23/21 01/24/21 15:00 23:00 07:00 Intake Total 200 ml 300 ml Output Total 300 ml Balance -100 ml 300 ml Physical Exam General: Alert, Oriented X3 Heart: Regular rate Lungs: Clear Abdomen: Normal bowel sounds Extremities: No clubbing, No cyanosis Skin: No rashes Labs Labs: Laboratory Tests Test 01/23/21 13:00 White Blood Count 9.0 x10^3/uL (4.0-11.0) Red Blood Count 4.90 x10^6/uL (4.30-5.70) Hemoglobin 15.7 g/dL (13.0-17.5) Hematocrit 47.1 % (39.0-53.0) Mean Corpuscular Volume 96 fL (79-100) Mean Corpuscular Hemoglobin 32 pg (25-35) Mean Corpuscular Hemoglobin Concent 33 g/dL (31-37) Red Cell Distribution Width 13.5 % (11.5-14.5) Platelet Count 173 x10^3/uL (140-400) Neutrophils (%) (Auto) 81 % (31-73) Lymphocytes (%) (Auto) 11 % (24-48) Monocytes (%) (Auto) 6 % (0-9) Eosinophils (%) (Auto) 1 % (0-3) Basophils (%) (Auto) 1 % (0-3) Neutrophils # (Auto) 7.3 x10^3/uL (1.8-7.7) Lymphocytes # (Auto) 1.0 x10^3/uL (1.0-4.8) Monocytes # (Auto) 0.6 x10^3/uL (0.0-1.1) Eosinophils # (Auto) 0.1 x10^3/uL (0.0-0.7) Basophils # (Auto) 0.1 x10^3/uL (0.0-0.2) Sodium Level 140 mmol/L (136-145) Potassium Level 4.8 mmol/L (3.5-5.1) Chloride Level 101 mmol/L (98-107) Carbon Dioxide Level 36 mmol/L (21-32) Anion Gap 3 (6-14) Blood Urea Nitrogen 14 mg/dL (8-26) Creatinine 1.2 mg/dL (0.7-1.3) Estimated GFR (Cockcroft-Gault) 57.8 BUN/Creatinine Ratio 12 (6-20) Glucose Level 122 mg/dL (70-99) Calcium Level 9.3 mg/dL (8.5-10.1) Magnesium Level 1.9 mg/dL (1.8-2.4) Total Bilirubin 0.6 mg/dL (0.2-1.0) Aspartate Amino Transf (AST/SGOT) 25 U/L (15-37) Alanine Aminotransferase (ALT/SGPT) 21 U/L (16-63) Alkaline Phosphatase 98 U/L (46-116) Troponin I High Sensitivity 8 ng/L (4-75) Total Protein 6.9 g/dL (6.4-8.2) Albumin 3.4 g/dL (3.4-5.0) Albumin/Globulin Ratio 1.0 (1.0-1.7) Assessment and Plan Assessmemt and Plan Problems Medical Problems: (1) Dizziness Status: Acute Vertigo Weakness Dizziness Noncompliance History of muscular dystrophy A-Fib, COPD, Diverticulitis, High Cholesterol, Hypertension,, vertigo, O2 dependent Plan Cardiac monitoring Await cardiology input PT OT if possible As needed meclizine Home meds DVT prophylaxis Encourage p.o. intake Full code halfway unit evaluation Trend labs Comment Review of Relevant I have reviewed the following items chris (where applicable) has been applied. Medications: Current Medications Medications (Trade) Dose Ordered Sig/Roseline Route PRN Reason Start Time Stop Time Status Last Admin Dose Admin Senna/Docusate Sodium (Senna Plus) 1 tab BID PO 01/23/21 21:00 01/24/21 07:48 Atorvastatin Calcium (Lipitor) 10 mg HS PO 01/23/21 21:00 01/23/21 20:26 Flecainide Acetate (Tambocor) 50 mg Q12HR PO 01/23/21 21:00 01/24/21 07:49 Aspirin (Ecotrin) 81 mg HS PO 01/23/21 21:00 01/23/21 20:26 Fluticasone Propionate (Flonase) 2 spray BID NS 01/23/21 21:00 01/24/21 07:48 Pantoprazole Sodium (Protonix) 40 mg DAILYAC PO 01/24/21 07:30 01/24/21 07:49 Justifications for Admission Other Justification DURAN AUSTIN III DO Jan 24, 2021 08:30
[2021-01-24] MEDS ORDERED: ASPIRIN ENTERIC COATED 81 MG TABLET.DR. PO SCH (09:00)
--- NOTE | 2021-01-24 09:14 | PDOC2 ---
MARYJANE AMIN SPIRITS MODEL 01/24/21 0914: CARDIAC CONSULT DATE OF CONSULT Date of Consult DATE: 01/24/21 TIME: 08:53 REASON FOR CONSULT Reason for Consult: dizziness, hx of afib REFERRING PHYSICIAN Referring Physician: Jan SOURCE Source: Chart review, Patient HISTORY OF PRESENT ILLNESS HISTORY OF PRESENT ILLNESS This is a pleasant 85 yo male admitted for complains of lightheadedness. This occurred while driving and felt weak. No nausea or vomiting. No chest pain, palpitations or SOA. He did not skip meals and was hydrated. Denies vertigo but his symptoms somewhat got better after taking meclizine. He sees Dr. Nation at and has a hx of AFIB which at the present time he is in SR. No recent falls or injury and no passing out. PAST MEDICAL HISTORY Past Medical History Cardiovascular: AFIB, HTN, Hyperlipidemia, carotid artery disease Pulmonary: COPD (chronic O2 use) CENTRAL NERVOUS SYSTEM: Other (No pertinent history) GI: Diverticulosis Heme/Onc: No pertinent hx Hepatobiliary: Cholelithiasis Psych: No pertinent hx Musculoskeletal: Osteoarthritis Rheumatologic: Muscular dystrophy Infectious disease: No pertinent hx ENT: chronic sinusitis Renal/: No pertinent hx Endocrine: Diabetes (2)?, Benign right thyroid nodule Dermatology: No pertinent hx PAST SURGICAL HISTORY Past Surgical History Cholecystectomy, Cataract Removal, Hernia Repair (inguinal), Colon Resection, Other (colostomy) FAMILY HISTORY Family History noncontributory SOCIAL HISTORY Smoke: Quit ALCOHOL: none Drugs: None Lives: with Family CURRENT MEDICATIONS CURRENT MEDICATIONS Current Medications Medications (Trade) Dose Ordered Sig/Roseline Route PRN Reason Start Time Stop Time Status Last Admin Dose Admin Senna/Docusate Sodium (Senna Plus) 1 tab BID PO 01/23/21 21:00 01/24/21 07:48 Atorvastatin Calcium (Lipitor) 10 mg HS PO 01/23/21 21:00 01/23/21 20:26 Flecainide Acetate (Tambocor) 50 mg Q12HR PO 01/23/21 21:00 01/24/21 07:49 Aspirin (Ecotrin) 81 mg HS PO 01/23/21 21:00 01/23/21 20:26 Fluticasone Propionate (Flonase) 2 spray BID NS 01/23/21 21:00 01/24/21 07:48 Pantoprazole Sodium (Protonix) 40 mg DAILYAC PO 01/24/21 07:30 01/24/21 07:49 ALLERGIES ALLERGIES: Coded Allergies: levofloxacin (Verified Allergy, Severe, Anaphylaxis, 10/30/15) morphine (Verified Adverse Reaction, Severe, 01/24/21) hallucinations ROS Review of System 14 point ROS evaluated with pertinent positives noted per HPI PHYSICAL EXAM General: Alert, Oriented X3, Cooperative, No acute distress HEENT: Atraumatic, Mucous membr. moist/pink Lungs: Clear to auscultation, Normal air movement Heart: Regular rate (SR with PVCs), Normal S1, Normal S2, No murmurs Abdomen: Soft, No tenderness Extremities: No cyanosis, No edema Skin: No breakdown, No significant lesion Neuro: Normal speech, Sensation intact Psych/Mental Status: Mental status NL, Mood NL MUSCULOSKELETAL: Osteoarthritic changes both hands VITALS/I&O VITALS/I&O: Vital Signs Date Time Temp Pulse Resp B/P (MAP) Pulse Ox O2 Delivery O2 Flow Rate FiO2 01/24/21 07:55 49 118/69 (85) 94 Nasal Cannula 4.0 01/24/21 07:05 97.9 20 97.9 I & O 01/23/21 01/23/21 01/24/21 15:00 23:00 07:00 Intake Total 200 ml 300 ml Output Total 300 ml Balance -100 ml 300 ml LABS Lab: Laboratory Tests Test 01/23/21 13:00 White Blood Count 9.0 x10^3/uL (4.0-11.0) Red Blood Count 4.90 x10^6/uL (4.30-5.70) Hemoglobin 15.7 g/dL (13.0-17.5) Hematocrit 47.1 % (39.0-53.0) Mean Corpuscular Volume 96 fL (79-100) Mean Corpuscular Hemoglobin 32 pg (25-35) Mean Corpuscular Hemoglobin Concent 33 g/dL (31-37) Red Cell Distribution Width 13.5 % (11.5-14.5) Platelet Count 173 x10^3/uL (140-400) Neutrophils (%) (Auto) 81 % (31-73) H Lymphocytes (%) (Auto) 11 % (24-48) L Monocytes (%) (Auto) 6 % (0-9) Eosinophils (%) (Auto) 1 % (0-3) Basophils (%) (Auto) 1 % (0-3) Neutrophils # (Auto) 7.3 x10^3/uL (1.8-7.7) Lymphocytes # (Auto) 1.0 x10^3/uL (1.0-4.8) Monocytes # (Auto) 0.6 x10^3/uL (0.0-1.1) Eosinophils # (Auto) 0.1 x10^3/uL (0.0-0.7) Basophils # (Auto) 0.1 x10^3/uL (0.0-0.2) Sodium Level 140 mmol/L (136-145) Potassium Level 4.8 mmol/L (3.5-5.1) Chloride Level 101 mmol/L (98-107) Carbon Dioxide Level 36 mmol/L (21-32) H Anion Gap 3 (6-14) L Blood Urea Nitrogen 14 mg/dL (8-26) Creatinine 1.2 mg/dL (0.7-1.3) Estimated GFR (Cockcroft-Gault) 57.8 BUN/Creatinine Ratio 12 (6-20) Glucose Level 122 mg/dL (70-99) H Calcium Level 9.3 mg/dL (8.5-10.1) Magnesium Level 1.9 mg/dL (1.8-2.4) Total Bilirubin 0.6 mg/dL (0.2-1.0) Aspartate Amino Transferase (AST) 25 U/L (15-37) Alanine Aminotransferase (ALT) 21 U/L (16-63) Alkaline Phosphatase 98 U/L (46-116) Troponin I High Sensitivity 8 ng/L (4-75) Total Protein 6.9 g/dL (6.4-8.2) Albumin 3.4 g/dL (3.4-5.0) Albumin/Globulin Ratio 1.0 (1.0-1.7) Laboratory Tests 01/23/21 13:00 Laboratory Tests 01/23/21 13:00 ECHOCARDIOGRAM ECHOCARDIOGRAM <Conclusion> The left ventricular systolic function is normal and the ejection fraction is within normal range. The Ejection Fraction is 50-55%. There is mild concentric left ventricular hypertrophy. There is no significant aortic valvular stenosis. Calculated aortic valve area is 2.17 cm2 with maximum pressure gradient of 10 mmHg and mean pressure gradient of 6 mmHg. Doppler and Color Flow revealed no significant aortic regurgitation. Doppler and Color Flow revealed trace mitral valve regurgitation. Doppler and Color Flow revealed trace to mild tricuspid regurgitation with an estimated PAP of 35 mmHg. DATE: 03/20/18 1627 ASSESSMENT/PLAN ASSESSMENT/PLAN 1. Dizziness: possibly vasovagal. periods of bradycardia in the 40s. negative for CSH 2. Hx of Chronic Sinusitis/diplopia 3. PAFIB: SR/RBBB with intermittent PVCs 4. HTN: controlled 5. COPD with home O2 6. Hx of benign right thyroid nodule 7. Hx of Muscular dystrophy Recommendations 1. Continue ASA for stroke prevention. Taken off anticoagulation in the past due to significant renal bleed. 2. Follows up with Dr. Nation when discharged. 3. Continue with flecainide for rhythm maintenance. Will defer further a djustment to his regular needle leader 4. TTE today. Will need MCOT, discuss with pt CHICHO PAUL MD 01/24/21 1614: CARDIAC CONSULT ASSESSMENT/PLAN ASSESSMENT/PLAN Patient seen and examined I agree with our nurse practitioners assessment and plan. Dizziness. Mild bradycardia overnight. Possibly vasovagal. Feeling better today. We will continue on flecainide with follow-up with his regular needle leader. Echocardiogram today. Paroxysmal atrial fibrillation. Flecainide as noted above. Outpatient monitoring as per his primary needle leader. Controlled hypertension. COPD with home oxygen and baseline pulmonary treatments. History of muscular dystrophy. MARYJANE AMIN APRN Jan 24, 2021 09:14 CHICHO PAUL MD Jan 24, 2021 16:14
--- NOTE | 2021-01-24 11:41 | NUR ---
SW following. Discussed with RN, pt from home with , 4L (uses oxygen at home), cardiac diet. PT/OT ordered. Pt is wheelchair bound at home, SBA with a walker. SW will continue to follow.
[2021-01-24] MEDS: ATORVASTATIN CALCIUM 10 MG TABLET. PO SCH (21:26)
[2021-01-24] MEDS: ASPIRIN ENTERIC COATED 81 MG TABLET.DR. PO SCH (21:26)
[2021-01-25 02:35] VITALS: BP 140/74
[2021-01-25] MEDS: PANTOPRAZOLE 40 MG TABLET.DR. PO SCH ×2 (06:27→10:16)
[2021-01-25] MEDS: HEPARIN for SUB-Q USE 5,000 UNIT/ML VIAL. SQ SCH ×2 (06:32→14:00)
[2021-01-25 07:00] VITALS: BP 107/58
--- NOTE | 2021-01-25 08:05 | CARD ---
MR#: [id number] Date of Study: 01/24/2021 Ordering Physician: MARYJANE AMIN, Referring Physician: MARYJANE AMIN, Tech: Simona Ledesmaalysergio, [facility] APPROVED REPORT EXAM: Two-dimensional and M-mode echocardiogram with Doppler and color Doppler. Other Information Quality : AverageHR: 72bpm INDICATION Dizziness and Vertigo Dyspnea Chest Pain Presyncope 2D DIMENSIONS RVDd3.5 (2.9-3.5cm)Left Atrium(2D)3.8 (1.6-4.0cm) IVSd1.3 (0.7-1.1cm)Aortic Root(2D)3.6 (2.0-3.7cm) LVDd5.0 (3.9-5.9cm)LVOT Diameter2.0 (1.8-2.4cm) PWd1.1 (0.7-1.1cm)LVDs2.9 (2.5-4.0cm) FS (%) 41.4 %SV85.0 ml LVEF(%)72.0 (>50%) Aortic Valve AoV Peak Tera.144.7cm/sAoV VTI30.8cm AO Peak GR.8.4mmHgLVOT VTI 20.07cm AO Mean GR.5mmHg Mitral Valve MV E Olfynrue10.4cm/sMV E Peak Gr.3mmHg MV DECEL [id number] A Jxlxfuqm99.1cm/s MV E Mean Gr.1mmHgE/A Ratio0.7 TDI Lateral E' P. V6.05cm/sMedial E' P. V6.24cm/s E/Lateral E'8.5E/Medial E'8.2 Tricuspid Valve TR P. [id number] [id number] TR Peak Gr.[id number] LEFT VENTRICLE The left ventricle is normal size. There is mild concentric left ventricular hypertrophy. The left ve ntricular systolic function is normal. The Ejection Fraction is 50-55%. Wall motion consistent with c onduction abnormality. Transmitral Doppler flow pattern is Grade I-abnormal relaxation pattern. RIGHT VENTRICLE The right ventricle is normal size. There is normal right ventricular wall thickness. The right ventr icular systolic function is normal. ATRIA The left atrium size is normal. The right atrium size is normal. The interatrial septum is intact wit h no evidence for an atrial septal defect or patent foramen ovale as noted on 2-D or Doppler imaging. AORTIC VALVE The aortic valve is mildly to moderately thickened. Doppler and Color Flow revealed no significant ao rtic regurgitation. Calculated aortic valve area is 2.35 cm2 with maximum pressure gradient of 11 mmH g and mean pressure gradient of 6 mmHg. There is no significant aortic valvular stenosis. MITRAL VALVE The mitral valve is normal in structure and function. There is no evidence of mitral valve prolapse. There is no mitral valve stenosis. Doppler and Color-flow revealed trace mitral regurgitation. TRICUSPID VALVE The tricuspid valve is normal in structure and function. Doppler and Color Flow revealed trace tricus pid regurgitation with an estimated PAP of 34 mmHg. There is no tricuspid valve stenosis. PULMONIC VALVE The pulmonic valve is not well visualized. Doppler and Color Flow revealed no pulmonic valvular regur gitation. GREAT VESSELS The aortic root is normal in size. The IVC is normal in size and collapses >50% with inspiration. PERICARDIAL EFFUSION There is no evidence of significant pericardial effusion. Critical Notification Critical Value: No <Conclusion> The left ventricular systolic function is normal. The Ejection Fraction is 50-55%. Transmitral Doppler flow pattern is Grade I-abnormal relaxation pattern. Trace mitral regurgitation. Trace tricuspid regurgitation with an estimated PAP of 34 mmHg. There is no evidence of significant pericardial effusion. Signed by : Jim Carter, Electronically Approved : 01/25/2021 08:05:21
[2021-01-25] MEDS: SENNOSIDES/DOCUSATE 8.6/50MG TABLET. PO SCH (10:16)
[2021-01-25] MEDS: FLECAINIDE ACETATE 50 MG TABLET. PO SCH (10:16)
[2021-01-25] MEDS: FLUTICASONE 50MCG/NASAL SPRAY 16GM BOTTLE. NS SCH (10:17)
[2021-01-25 11:00] VITALS: BP 135/52
--- NOTE | 2021-01-25 11:15 | PDOC ---
[employer] PROGRESS NOTE Date of Service DOS: DATE: 01/25/21 TIME: 11:13 Chief Complaint Chief Complaint Vertigo Weakness Dizziness Noncompliance History of muscular dystrophy A-Fib, COPD, Diverticulitis, High Cholesterol, Hypertension,, vertigo, O2 dependent History of Present Illness History of Present Illness 01/25/2021 Patient seen and examined Discussed with RN Chart reviewed He is having some PVCs and some very brief pauses Clinically looks good, wants to go home to take care of his sick 01/24/2021 Patient seen and examined Discussed with RN Chart reviewed Vitals/I&O Vitals/I&O: Vital Signs Date Time Temp Pulse Resp B/P (MAP) Pulse Ox O2 Delivery O2 Flow Rate FiO2 01/25/21 10:16 75 107/58 01/25/21 08:00 Nasal Cannula 3.0 01/25/21 07:00 97.4 18 96 97.4 I & O 01/24/21 01/24/21 01/25/21 15:00 23:00 07:00 Intake Total 790 ml 1160 ml Output Total 400 ml 600 ml Balance 390 ml 1160 ml -600 ml Physical Exam General: Alert, Oriented X3, Cooperative, No acute distress Heart: Regular rate (SR with PVCs), Normal S1, Normal S2, No murmurs Lungs: Clear Abdomen: Soft, No tenderness Extremities: No cyanosis, No edema Skin: No breakdown, No significant lesion Assessment and Plan Assessmemt and Plan Problems Medical Problems: (1) Dizziness Status: Acute Vertigo Weakness Dizziness Noncompliance History of muscular dystrophy PVCs and very brief pauses A-Fib, COPD, Diverticulitis, High Cholesterol, Hypertension,, vertigo, O2 depen dent Plan Hope to discharge when okay with cardiology perhaps he might need an event monitor For now continue the following; Cardiac monitoring Adjusting cardiac meds per cardiology PT OT if possible As needed meclizine Home meds DVT prophylaxis Encourage p.o. intake Full code half-way unit evaluation (he refused) Trend labs Appreciate cardiology input Comment Review of Relevant I have reviewed the following items chris (where applicable) has been applied. Justifications for Admission Other Justification DURAN AUSTIN III, DO Jan 25, 2021 11:15
--- NOTE | 2021-01-25 12:07 | PDOC ---
CARDIO Progress Notes Date and Time Date of Service 01/25/2021 Time of Evaluation 1200 Subjective Subjective: No Chest Pain, No shortness of breath, No Palpitations Vitals Vitals Vital Signs Date Time Temp Pulse Resp B/P (MAP) Pulse Ox O2 Delivery O2 Flow Rate FiO2 01/25/21 11:00 97.6 45 18 135/52 (79) 97 Nasal Cannula 2.0 97.6 Weight Weight [ ] Input and Output Intake and Output Intake and Output 01/25/21 07:00 Intake Total 1950 ml Output Total 1000 ml Balance 950 ml Intake Oral 1940 ml Blood Product IV Normal Saline Flush 10 ml Output Urine Total 1000 ml # Voids 2 Physical Exam HEENT: Neck Supple W Full Motion Chest: Symmetric LUNGS: Clear to Auscultation Heart: S1S2, RRR (SR) Abdomen: Soft N/T Extremities: No Calf Tenderness Neurology: alert, oriented, follow commands Assessment Assessment 1. Dizziness: possibly vasovagal. negative for CSH. EF and WM nml per TTE 2. Hx of Chronic Sinusitis/diplopia 3. PAFIB: SR/RBBB with intermittent PVCs 4. HTN: controlled 5. COPD with home O2 6. Hx of benign right thyroid nodule 7. Hx of Muscular dystrophy Recommendations 1. Continue ASA for stroke prevention. Taken off anticoagulation in the past due to significant renal bleed. 2. Follows up with Dr. Nation when discharged. 3. Continue with flecainide for rhythm maintenance. 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 Will need MCOT, discuss with pt Justicifation of Admission Dx: Justifications for Admission: Justification of Admission Dx: Yes MARYJANE AMIN STITCHER SET UP OPERATOR AUTOMATIC Jan 25, 2021 12:07
--- NOTE | 2021-01-25 13:46 | NUR ---
SW following. Discussed with RN, pt from home with , 2L (uses oxygen at home), cardiac diet. Therapy recommending home health. SW met with pt, pt agreeable to home health, agreeable to [facility]. Vanessa Parsons RN notified. Possible discharge today per RN. SW will continue to follow.
--- NOTE | 2021-01-25 15:52 | EKG ---
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
--- NOTE | 2021-01-25 16:24 | NUR ---
Daughter brought home O2 tank, patient was taken out by this RN in wheelchair with belongings to main entrance and personal vehicle. 3LNC. Discharge education given, Home Health with [facility]. IV and telemonitor discontinued.
--- NOTE | 2021-01-25 20:47 | DS ---
DATE OF DISCHARGE: 01/25/2021 ADMISSION DIAGNOSES: 1. Dizziness. 2. Vertigo. 3. Weakness. 4. Noncompliance. 5. History of muscular dystrophy. DISCHARGE DIAGNOSES: 1. Resolving vasovagal dizziness with brief periods of bradycardia in the 40s. 2. History of muscular dystrophy. 3. Noncompliance. 4. Weakness. 5. Atrial fibrillation. 6. Chronic obstructive pulmonary disease. 7. Diverticulitis. 8. Hypertension. 9. Hyperlipidemia. 10. Oxygen dependence. CONSULTS: Cardiology. PROCEDURES: None. HOSPITAL COURSE: The patient is a pleasant middle-aged male who presented with some dizziness and some low-grade bradycardia. We admitted the patient to the traffic monitor specialist floor. I did serial enzymes, serial EKGs. We consulted Cardiology and basically his workup has been negative so far. He did have some PVCs and some very, very brief pauses, but overall he looks great. This morning, I saw and examined him. He is doing well. I discussed the case with the nurse. Cardiology has approved his discharge. We plan to discharge with close outpatient followup. The patient follows with a different recreation aide at another facility. DISPOSITION: Home. ACTIVITY: As tolerated. DIET: Cardiac. DISCHARGE MEDICATIONS: Please see the MAR. L-Arginine 3000 mg b.i.d., aspirin 81 a day, atorvastatin 10 a day, flecainide 50 b.i.d., fluticasone, meclizine 25 q.8 hours p.r.n., omeprazole 20 a day, Zofran 4 q.6 hours p.r.n., saw palmetto 900 daily and CoQ10 200 mg 3 capsules daily. Total time 34 minutes. KRIS/JEZ DR: KRIS/roldan TID: [id number]
== END 2021-01-25 16:34 | disposition home health service (06) | DRG 149 ==
LOC: ER 12:36 → 5 NORTH 14:48
PROVIDERS: ADMIT Student in an Organized Health Care Education/Training Program; ATTEND Student in an Organized Health Care Education/Training Program
DX: H81.10 Benign paroxysmal vertigo, unspecified ear (principal); E11.9 Type 2 diabetes mellitus without complications; E78.00 Pure hypercholesterolemia, unspecified; E78.5 Hyperlipidemia, unspecified; G71.00 Muscular dystrophy, unspecified; I10 Essential (primary) hypertension; I45.10 Unspecified right bundle-branch block; I48.0 Paroxysmal atrial fibrillation; J44.9 Chronic obstructive pulmonary disease, unspecified; Z82.49 Family history of ischemic heart disease and other diseases of the circulatory system; Z91.19 Patient's noncompliance with other medical treatment and regimen; Z93.3 Colostomy status; Z99.81 Dependence on supplemental oxygen; Z99.3 Dependence on wheelchair; K57.90 Diverticulosis of intestine, part unspecified, without perforation or abscess without bleeding; M19.90 Unspecified osteoarthritis, unspecified site; Z74.01 Bed confinement status; I49.3 Ventricular premature depolarization
CPT/HCPCS: 36415; 70450; 71045; 80053; 83735; 84443; 84484; 85025; 93005; 93306; J1644; 99285-25; G0378